=== PATIENT | female | born 1990 | race Caucasian/White ===

== ENCOUNTER 2020-09-10 11:01 | Emergency (ER) | payer OTHER ==
[2020-09-10 12:40] LABS: HEMOGLOBIN 12.6 gm/dl (12.3-15.3); RED BLOOD COUNT 4.44 M/UL (4.00-5.10); WHITE BLOOD COUNT 8.2 K/UL (4.5-11.0)
[2020-09-10 13:00] LABS: BUN/CREATININE RATIO 16 (0-10)
[2020-09-10] MEDS ORDERED: PHENERGAN 25 MG25 M1 PO (15:53)
== END 2020-09-10 16:15 | disposition home or self-care (01) ==
LOC: ER1 11:01
PROVIDERS: Physician Assistant
DX: R10.13 Epigastric pain (principal); R11.2 Nausea with vomiting, unspecified; R19.7 Diarrhea, unspecified; Z79.899 Other long term (current) drug therapy; Z79.02 Long term (current) use of antithrombotics/antiplatelets; Z88.1 Allergy status to other antibiotic agents
CPT/HCPCS: 76815; 80053; 81001; 83690; 85025; 96374; 99284; J2550; J7030

== ENCOUNTER 2020-11-18 16:01 | Emergency (ER) | payer OTHER ==
[~2020-11-18 16:01] MED LIST: PHENERGAN 25 MG25 M1 PO
[2020-11-18 17:07] LABS: HEMOGLOBIN 10.6 gm/dl (12.3-15.3); RED BLOOD COUNT 3.76 M/UL (4.00-5.10); WHITE BLOOD COUNT 8.5 K/UL (4.5-11.0)
[2020-11-18 17:36] LABS: BUN/CREATININE RATIO 13 (0-10)
== END 2020-11-18 20:32 | disposition home or self-care (01) ==
LOC: ER1 16:01
PROVIDERS: Emergency Medicine
DX: O99.891 Other specified diseases and conditions complicating pregnancy (principal); R07.89 Other chest pain; O99.283 Endocrine, nutritional and metabolic diseases complicating pregnancy, third trimester; E05.90 Thyrotoxicosis, unspecified without thyrotoxic crisis or storm; Z90.89 Acquired absence of other organs; Z88.1 Allergy status to other antibiotic agents; Z3A.29 29 weeks gestation of pregnancy; Z20.822 Contact with and (suspected) exposure to COVID-19
CPT/HCPCS: 80053; 82550; 82553; 83874; 84484; 85025; 93005; 99285; Q9967; U0002

== ENCOUNTER 2021-01-14 14:57 | Outpatient (CLI) | payer OTHER | END 2021-01-14 17:38 | disposition home or self-care (01) | LOC: GENOP 14:57 → OB 15:36 → GENOP 17:38 | DX: O36.8330 Maternal care for abnormalities of the fetal heart rate or rhythm, third trimester, not applicable or unspecified (principal); O99.343 Other mental disorders complicating pregnancy, third trimester; F41.9 Anxiety disorder, unspecified; F32.9 Major depressive disorder, single episode, unspecified; O99.283 Endocrine, nutritional and metabolic diseases complicating pregnancy, third trimester; E03.9 Hypothyroidism, unspecified; O99.213 Obesity complicating pregnancy, third trimester; E66.01 Morbid (severe) obesity due to excess calories; Z88.1 Allergy status to other antibiotic agents; Z3A.35 35 weeks gestation of pregnancy | CPT/HCPCS: 81001; 96365; 96366; G0378; J7120 ==

== ENCOUNTER 2021-02-08 05:14 | Inpatient (IN) | payer OTHER ==
[~2021-02-08] VITALS: Ht 180.3 cm; Wt 133.8 kg
[2021-02-08] MEDS ORDERED: CITALOPRAM HBR40 MG PO (06:20)
[2021-02-08] MEDS ORDERED: BUSPAR 10MG10 MG PO (06:21)
[2021-02-08] MEDS ORDERED: LEVOTHYROXINE25 MCG PO (06:21)
[2021-02-08 06:38] LABS: HEMOGLOBIN 9.1 gm/dl (12.3-15.3); RED BLOOD COUNT 3.62 M/UL (4.00-5.10); WHITE BLOOD COUNT 8.1 K/UL (4.5-11.0)
[2021-02-08] MEDS ORDERED: HYDROCODON-ACE1 EAC4 PO (09:16)
[2021-02-08] MEDS ORDERED: IBUPROFEN600 MG PO (09:16)
[2021-02-08] MEDS ORDERED: DOCUSATE SODIU100 MG PO (09:16)
[2021-02-09 08:48] LABS: HEMOGLOBIN 8.4 gm/dl (12.3-15.3)
[2021-02-09] MEDS ORDERED: LEVOTHYROXINE25 MC1 PO (15:29)
[2021-02-09] MEDS ORDERED: FERROUS SULFAT325 M2 PO (15:29)
== END 2021-02-10 14:42 | disposition home or self-care (01) | DRG 788 ==
LOC: OB 05:14
PROVIDERS: ADMIT Obstetrics & Gynecology
PROC: 4A1HXCZ Monitoring of Products of Conception, Cardiac Rate, External Approach (ICD-10-PCS; 2021-02-08)
PROC: 10D00Z1 Extraction of Products of Conception, Low, Open Approach (ICD-10-PCS; principal; 2021-02-08 07:30)
DX: O34.211 Maternal care for low transverse scar from previous cesarean delivery (principal); Z20.822 Contact with and (suspected) exposure to COVID-19; Z37.0 Single live birth; Z3A.39 39 weeks gestation of pregnancy; O99.344 Other mental disorders complicating childbirth; F41.9 Anxiety disorder, unspecified; Z90.49 Acquired absence of other specified parts of digestive tract; F32.9 Major depressive disorder, single episode, unspecified; O99.02 Anemia complicating childbirth; O99.284 Endocrine, nutritional and metabolic diseases complicating childbirth; E03.9 Hypothyroidism, unspecified; Z83.3 Family history of diabetes mellitus; Z80.3 Family history of malignant neoplasm of breast; Z88.8 Allergy status to other drugs, medicaments and biological substances
CPT/HCPCS: 36415; 81001; 82800; 85014; 85018; 85025; C9113; J0690; J1200; J1650; J1885; J2274; J2300; J2405; J2590; J3010; J7120